=== PATIENT | male | born 1970 | race Two or more races ===

== ENCOUNTER 2018-08-18 19:42 | Emergency (ER) | payer OTHER ==
[~2018-08-18] VITALS: Ht 170.2 cm; Wt 71.2 kg
[2018-08-18 20:13] VITALS: BP 135/79
[2018-08-18] MEDS ORDERED: LIDOCAINE 1% HCL (LOCAL ANESTH.) INJ 20ML MDV IJ ONE (22:15)
[2018-08-18] MEDS ORDERED: LET TOPICAL SOLN 5 ML TOP ONE (22:15)
[2018-08-18] MEDS ORDERED: TETANUS-DIPTH-ACEL PERTUSSIS 0.5ML SYRG IM ONE (22:15)
== END 2018-08-18 23:40 | disposition home or self-care (01) ==
LOC: ER 19:46
DX: S01.01XA Laceration without foreign body of scalp, initial encounter (principal); Y07.499 Other family member, perpetrator of maltreatment and neglect; Y93.89 Activity, other specified; Y99.8 Other external cause status; Y92.89 Other specified places as the place of occurrence of the external cause
CPT/HCPCS: 12002; 90471; 90715; 99283; J2001; J3490

== ENCOUNTER 2018-08-28 13:27 | Emergency (ER) | payer OTHER ==
[~2018-08-28] VITALS: Ht 170.2 cm; Wt 70.8 kg
[2018-08-28 13:41] VITALS: BP 102/47
== END 2018-08-28 15:00 | disposition home or self-care (01) ==
LOC: ER 13:32
DX: S01.01XD Laceration without foreign body of scalp, subsequent encounter (principal); X58.XXXD Exposure to other specified factors, subsequent encounter